=== PATIENT | female | born 1995 | race Caucasian/White ===

== ENCOUNTER 2019-03-01 13:16 | Emergency (ER) | payer MEDICAID ==
--- NOTE | 2019-03-01 13:39 | Emergency Department Report ---
Blank Doc - Documentation Documentation: 23-year-old female that presents with vaginal bleeding and pelvic pain with n/v. Stated is 15 weeks . This initial assessment/diagnostic orders/clinical plan/treatment(s) is/are subject to change based on patient's health status, clinical progression and re-assessment by fellow clinical providers in the ED. Further treatment and workup at subsequent clinical providers discretion. Patient/guardians urged not to elope from the ED as their condition may be serious if not clinically assessed and managed. Initial orders include: 1- Patient sent to [facility] for further evaluation and treatment 2- labs 3- UA 4- US OB
[2019-03-01 14:36] LABS: Bilirubin,Urine NEG (Negative); Blood,Urine NEG (Negative); Color,Urine Yellow (Yellow); Mucus,Urine 3+ /HPF; Protein,Urine <15 mg/dL mg/dL (Negative); Urobilinogen,Urine < 2.0 mg/dL (<2.0)
--- NOTE | 2019-03-01 15:13 | Ultrasound Report ---
ULTRASOUND OBSTETRIC INDICATION / CLINICAL INFORMATION: vaginal bleeding and pelvic pain. Clinical Gestational Age (GA): 18.0 weeks.days TECHNIQUE: Transabdominal and Transvaginal. COMPARISON: None available. FINDINGS: GESTATIONAL SAC: Well-defined oval shape and intrauterine in location. YOLK SAC: No significant abnormality. EMBRYO/FETUS: No significant abnormality. - [place]-Rump Length = 1.63 cm = 8.0 weeks.days - Heart Rate, beats per minute (if present) = 178 ADNEXA: Small right ovarian corpus luteum cyst. FREE FLUID: None. ADDITIONAL FINDINGS: None. IMPRESSION: 1. Single, living intrauterine with estimated sonographic age of 8.0 weeks.days. Signer Name: Felicia Aquino MD Signed: 03/01/2019 3:09 PM Workstation Name: [id number]
--- NOTE | 2019-03-01 15:13 | Ultrasound Report ---
ULTRASOUND OBSTETRIC INDICATION / CLINICAL INFORMATION: vaginal bleeding and pelvic pain. Clinical Gestational Age (GA): 18.0 weeks.days TECHNIQUE: Transabdominal and Transvaginal. COMPARISON: None available. FINDINGS: GESTATIONAL SAC: Well-defined oval shape and intrauterine in location. YOLK SAC: No significant abnormality. EMBRYO/FETUS: No significant abnormality. - [place]-Rump Length = 1.63 cm = 8.0 weeks.days - Heart Rate, beats per minute (if present) = 178 ADNEXA: Small right ovarian corpus luteum cyst. FREE FLUID: None. ADDITIONAL FINDINGS: None. IMPRESSION: 1. Single, living intrauterine with estimated sonographic age of 8.0 weeks.days. Signer Name: Felicia Aquino MD Signed: 03/01/2019 3:09 PM Workstation Name: [id number]
[2019-03-01 15:26] LABS: Basophils % (Auto) 0.3 % (0.0-1.8); Eosinophils % (Auto) 0.1 % (0.0-4.3); Hematocrit 37.8 % (30.3-42.9); Hemoglobin 12.2 gm/dl (10.1-14.3); Lymphocytes # (Auto) 2.2 K/mm3 (1.2-5.4); Lymphocytes % (Auto) 19.4 % (13.4-35.0); Mean Corpuscular HGB Conc 32 % (30-34); Mean Corpuscular Volume 77 fl (79-97); Monocytes # (Auto) 1.1 K/mm3 (0.0-0.8); Monocytes % (Auto) 10.1 % (0.0-7.3); Platelet Count 277 K/mm3 (140-440); Red Blood Count 4.94 M/mm3 (3.65-5.03)
[2019-03-01] MEDS ORDERED: SODIUM CHLORIDE 0.9% 1000 ML 1,000 ML IV ONE (18:35)
[2019-03-01] MEDS ORDERED: METOCLOPRAMIDE 10 MG/2 ML INJ IV ONE (18:35)
--- NOTE | 2019-03-01 18:39 | Emergency Department Report ---
HPI - General Chief Complaint: Vaginal Bleeding Time Seen by Provider: 03/01/19 13:38 - HPI HPI: Room 37 The patient is a 23-year-old female presenting with chief complaint of nausea and vomiting. The patient states 02/15/2019 she began experiencing nausea and vomiting. She states she went to an outside hospital where she was found to have a positive test. Patient was given Zofran with minimal improvement. Patient states she still been unable to tolerate anything by mouth 02/15/2019. Patient complains of feeling fatigued. One week ago yesterday the patient had brief episodes of minimal vaginal spotting when asked how she is feeling currently the patient states she feels nauseous. Location: [See above] Duration: [See above] Quality: [See above] Severity: [See above] Timing: [See above] Context: [See above] Modifying factors: [See above] Associated signs and symptoms: [see above] ED Past Medical Hx - Past Medical History Previous Medical History?: No - Surgical History Past Surgical History?: Yes Additional Surgical History: TONSILS, wisdom tooth extraction - Family History Family history: no significant - Social History Smoking Status: Never Smoker Substance Use Type: None (denies illicit drug use) - Medications Home Medications: Home Medications Medication Instructions Recorded Confirmed Last Taken Type Metoclopramide [Reglan] 10 mg PO QID #30 tab 03/01/19 Unknown Rx ED Review of Systems ROS: Stated complaint: 15WKS PREG/VOMITING/SPOTTING Other details as noted in HPI Constitutional: fever (subjective) Eyes: denies: eye pain ENT: denies: throat pain Respiratory: no symptoms reported Cardiovascular: denies: chest pain Endocrine: denies: no symptoms reported Gastrointestinal: nausea, vomiting Genitourinary: denies: dysuria Musculoskeletal: denies: back pain Neurological: headache Physical Exam - Physical Exam Vital Signs: Vital Signs 03/01/19 13:25 Temperature 98.8 F Pulse Rate 116 H Respiratory 18 Rate Blood Pressure 116/75 O2 Sat by Pulse 99 Oximetry Physical Exam: GENERAL: The patient is well-developed well-nourished female lying on stretcher not appearing to be in acute distress. [] HEENT: Normocephalic. Atraumatic. Extraocular motions are intact. NECK: Supple. Trachea midline CHEST/LUNGS: Clear to auscultation. There is no respiratory distress noted. HEART/CARDIOVASCULAR: Regular. There is no tachycardia. There is no gallop rub or murmur. ABDOMEN: Abdomen is soft, nontender. Patient has normal bowel sounds. There is no abdominal distention. SKIN: There is no rash. There is no edema. There is no diaphoresis. NEURO: The patient is awake, alert, and oriented. The patient is cooperative. The patient has normal speech MUSCULOSKELETAL: There is no evidence of acute injury. ED Course Vital Signs 03/01/19 13:25 Temperature 98.8 F Pulse Rate 116 H Respiratory 18 Rate Blood Pressure 116/75 O2 Sat by Pulse 99 Oximetry - Reevaluation(s) Reevaluation #1: 03/01/19 19:12 Patient states she feels improved and just wants to go home. Patient does not wish to wait for IV fluids to complete nor does she wish to have a po challenge ED Medical Decision Making - Lab Data Result diagrams: 03/01/19 14:56 Laboratory Tests 03/01/19 03/01/19 03/01/19 13:49 14:56 14:56 WBC 11.2 H RBC 4.94 Hgb 12.2 Hct 37.8 MCV 77 L MCH 25 L MCHC 32 RDW 16.0 H Plt Count 277 Lymph % (Auto) 19.4 [place] % (Auto) 10.1 H Eos % (Auto) 0.1 Baso % (Auto) 0.3 Lymph # 2.2 [place] # 1.1 H Eos # 0.0 Baso # 0.0 Seg Neutrophils % 70.1 H Seg Neutrophils # 7.8 H HCG, Quant [id number] H Urine Color Yellow Urine Turbidity Slightly-cloudy Urine pH 6.0 Ur Specific [place] 1.021 Urine Protein <15 mg/dl Urine Glucose (UA) Neg Urine Ketones 80 Urine Blood Neg Urine Nitrite Neg Urine Bilirubin Neg Urine Urobilinogen < 2.0 Ur Leukocyte Esterase Tr Urine WBC (Auto) 2.0 Urine RBC (Auto) 2.0 U Epithel Cells (Auto) 7.0 Urine Mucus 3+ - Radiology Data Radiology results: report reviewed (pelvic ultrasound), image reviewed (pelvic ultrasound) Findings [facility] [address] [place] [address] Ultrasound Report Signed Patient: CELI GUARDADO MR#: [id number] : 1995 Acct:[id number] Age/Sex: 23 / F ADM Date: 03/01/19 Loc: ED Attending Dr: Ordering Physician: LIONEL BUENROSTRO NP Date of Service: 03/01/19 Procedure(s): US OB transvaginal Accession Number(s): [id number] cc: LIONEL BUENROSTRO NP ULTRASOUND OBSTETRIC INDICATION / CLINICAL INFORMATION: vaginal bleeding and pelvic pain. Clinical Gestational Age (GA): 18.0 weeks.days TECHNIQUE: Transabdominal and Transvaginal. COMPARISON: None available. FINDINGS: GESTATIONAL SAC: Well-defined oval shape and intrauterine in location. YOLK SAC: No significant abnormality. EMBRYO/FETUS: No significant abnormality. - [place]-Rump Length = 1.63 cm = 8.0 weeks.days - Heart Rate, beats per minute (if present) = 178 ADNEXA: Small right ovarian corpus luteum cyst. FREE FLUID: None. ADDITIONAL FINDINGS: None. IMPRESSION: 1. Single, living intrauterine with estimated sonographic age of 8.0 weeks.days. Signer Name: Felicia Aquino MD Signed: 03/01/2019 3:09 PM Workstation Name: [email or web address] Transcribed By: DT Dictated By: Vicente Aquino MD Electronically Authenticated By: Vicente Aquino MD Signed Date/Time: 03/01/19 1509 DD/ 1502 TD/TT: - Differential Diagnosis hyperemesis gravidarum, threatened Critical care attestation.: If time is entered above; I have spent that time in minutes in the direct care of this critically ill patient, excluding procedure time. ED Disposition Clinical Impression: Hyperemesis gravidarum, Threatened Disposition: DC-01 TO HOME OR SELFCARE Is pt being admited?: No Does the pt Need Aspirin: No Condition: Stable Instructions: Hyperemesis Gravidarum (ED) Additional Instructions: Return to the emergency department should you develop worsening symptoms, inability to tolerate food or liquids, high fever or any other concerns Prescriptions: Metoclopramide [Reglan] 10 mg PO QID #30 tab Referrals: your [employer]OR, [facility] [employer] PROFESSOR [Other] - MARISELA Time of Disposition: 19:13
[2019-03-01 19:46] VITALS: BP 112/78
== END 2019-03-01 19:48 | disposition home or self-care (01) ==
LOC: ED 13:16
DX: O20.0 Threatened abortion (principal); O21.8 Other vomiting complicating pregnancy; O26.852 Spotting complicating pregnancy, second trimester; Z3A.15 15 weeks gestation of pregnancy; Z79.899 Other long term (current) drug therapy
CPT/HCPCS: 36415; 76801; 76817; 81001; 84702; 85025; 96361; 96374; 99284; J2765; J7030